=== PATIENT | female | born 1960 | race Caucasian/White ===

== ENCOUNTER 2020-01-12 12:49 | Emergency (ER) | payer OTHER ==
[~2020-01-12] VITALS: Ht 152.4 cm; Wt 81.8 kg
[2020-01-12 13:26] VITALS: TEMP 97.2
[2020-01-12] MEDS ORDERED: PRIL40 PO (13:53)
[2020-01-12] MEDS ORDERED: NORVASC 10MG10 MG PO (13:54)
[2020-01-12] MEDS ORDERED: INDERAL LA120 MG PO (13:55)
[2020-01-12] MEDS ORDERED: ONE-A-DAY ESSE1 EACH PO (13:56)
[2020-01-12] MEDS ORDERED: NORCO 325 MG-51 TAB PO ×3 (15:04→15:16)
[2020-01-12 15:41] VITALS: BP 133/76; PULSE 67
== END 2020-01-12 15:41 | disposition home or self-care (01) ==
LOC: COL.ER 12:49
DX: S80.811A Abrasion, right lower leg, initial encounter (principal); S43.101A Unspecified dislocation of right acromioclavicular joint, initial encounter; T14.8XXA Other injury of unspecified body region, initial encounter; Z88.0 Allergy status to penicillin; W01.198A Fall on same level from slipping, tripping and stumbling with subsequent striking against other object, initial encounter; Y92.009 Unspecified place in unspecified non-institutional (private) residence as the place of occurrence of the external cause

== ENCOUNTER 2020-03-26 10:00 | Outpatient (RCR) | payer OTHER ==
[~2020-03-26 10:00] MED LIST: INDERAL LA120 MG PO; NORCO 325 MG-51 TAB PO; NORVASC 10MG10 MG PO; ONE-A-DAY ESSE1 EACH PO; PRIL40 PO
== END 2020-03-26 12:13 | disposition home or self-care (01) ==
LOC: MKS.ESL.PT 10:00
DX: M25.511 Pain in right shoulder (principal)

== ENCOUNTER 2021-02-12 07:16 | Day surgery (SDC) | payer OTHER ==
[~2021-02-12] VITALS: Ht 152.4 cm; Wt 83.6 kg
[~2021-02-12 07:16] MED LIST changes: +FORTAMET500 M1 PO
[2021-02-12] MEDS ORDERED: TOPROL XL 50MG50 MG PO (07:39)
[2021-02-12] MEDS ORDERED: NORVASC 10MG10 MG PO (07:40)
[2021-02-12 07:56] VITALS: BP 139/91; PULSE 70; TEMP 98.1
[2021-02-12 07:59] LABS: BASO # 0.1 K/mm3 (0.0-0.2); BASO % 0.8 % (0.0-2.0); EOS # 0.4 K/mm3 (0.0-0.7); EOS % 5.2 % (0-4.0); GRAN # 5.2 K/mm3 (1.4-6.5); GRAN % 63.5 % (42.2-75.2); HEMATOCRIT 48.8 % (37.0-47.0); HEMOGLOBIN 15.8 g/dl (12.5-16.0); LYMPH # 1.9 K/mm3 (1.2-3.4); LYMPH % 23.5 % (20.0-51.0); MEAN CELL VOLUME 86 fl (80.0-100.0); MEAN CORPUSCULAR HEMOGLOBIN 28 pg (27.0-31.0); MEAN CORPUSCULAR HGB CONC 32 g/dl (33.0-37.0); MEAN PLATELET VOLUME 9.9 fl (7.4-10.4); MONO # 0.5 K/mm3 (0.1-0.6); MONO % 6.2 % (1.7-9.3); PLATELET COUNT 316 K/mm3 (130-400); RED BLOOD COUNT 5.71 M/mm3 (4.10-5.30); REDCELL DISTRIBUTION WIDTH-CV 13.9 % (11.5-14.5)
[2021-02-12 08:27] LABS: ALBUMIN 4.2 gm/dL (3.5-5.0); BILIRUBIN,TOTAL 0.7 mg/dL (0.2-1.2); CALCIUM 9.9 mg/dL (8.4-10.2); CREATININE, serum 0.72 mg/dL (0.57-1.11); TOTAL PROTEIN 7.6 gm/dL (6.2-8.1)
[2021-02-12] MEDS ORDERED: NORCO 325 MG-51 TAB PO (11:11)
[2021-02-12 11:45] VITALS: BP 103/67; PULSE 99; TEMP 98.1
[2021-02-12 12:00] VITALS: BP 104/64; PULSE 101
[2021-02-12 12:15] VITALS: BP 112/66; PULSE 97
--- NOTE | 2021-02-12 13:50 | NUR ---
1145: Patient arrived back into [facility] following OR. Patient alert and awake, on 2L of O2. Denies nausea, states she is having discomfort in her abdominal area. 1200: Patient vitally stable. No complaint of nausea. Patient requesting vanilla pudding and water. Tolerated both well. Patient stating she wants to rest for awhile. 1215: Patient resting in bed. States she would like to get up and go to the restroom. Pain medication given per MAR. 1220: Patient up to restroom. Ambulated independently. 1230: Patient arrived back to room, states she would like to get dressed and go home. 1240: Patient states her is on his way. 1250: Left patient in the care of her , arrived at the emergency department to pick her up.
== END 2021-02-12 12:55 | disposition home or self-care (01) ==
LOC: SDCO 07:16
PROVIDERS: Surgery
DX: K43.9 Ventral hernia without obstruction or gangrene (principal); I10 Essential (primary) hypertension; K21.9 Gastro-esophageal reflux disease without esophagitis; G43.909 Migraine, unspecified, not intractable, without status migrainosus; E11.9 Type 2 diabetes mellitus without complications; Z79.84 Long term (current) use of oral hypoglycemic drugs; Z79.899 Other long term (current) drug therapy; Z20.822 Contact with and (suspected) exposure to COVID-19; Z90.710 Acquired absence of both cervix and uterus; Z90.49 Acquired absence of other specified parts of digestive tract; Z80.1 Family history of malignant neoplasm of trachea, bronchus and lung
CPT/HCPCS: C1781; J7120